=== PATIENT | female | born 1970 | race Caucasian/White ===

== ENCOUNTER → 2016-06-26 | Outpatient (CLI) | payer OTHER ==
[~2016-06-26] MED LIST: MULT-706 PO; OXYC-302 PO; QUET400T4 PO; SUMA50TA3 PO; TRAM-28 PO
== END | disposition home or self-care (01) ==
LOC: PETCFH 09:08
PROVIDERS: ATTEND Internal Medicine Gastroenterology
DX: K30 Functional dyspepsia (principal); K58.9 Irritable bowel syndrome, unspecified; K64.9 Unspecified hemorrhoids; K59.00 Constipation, unspecified; F31.9 Bipolar disorder, unspecified; G43.109 Migraine with aura, not intractable, without status migrainosus; F34.1 Dysthymic disorder; E89.41 Symptomatic postprocedural ovarian failure; Z68.25 Body mass index [BMI] 25.0-25.9, adult
CPT/HCPCS: 78264; A9541

== ENCOUNTER 2016-07-11 11:40 | Day surgery (SDC) | payer OTHER ==
[~2016-07-11] VITALS: Ht 162.6 cm; Wt 64.0 kg
[2016-07-11] MEDS: FENTANYL PF 100 MCG/2ML IV PRN ×4 (09:55→10:15)
[2016-07-11] MEDS: HYDROmorphone 1 MG/ML, 1ML IV PRN ×3 (10:20→10:35)
[~2016-07-11 11:40] MED LIST changes: +ACETAMINOPHEN 650 MG/20.3 ML UDC ONE; +DEXAMETHASONE 4 MG/ML, 1ML ONE; +EPHEDRINE 50 MG/ML, 1ML ONE; +FENTANYL PF 100 MCG/2ML ONE; +FENTANYL PF 250 MCG/5ML ONE; +HYDROmorphone 1 MG/ML, 1ML ONE; +KETOROLAC 30 MG/1 ML ONE; +LIDOCAINE 0.5%-EPI 1:200K, 50ML ONE; +MIDAZOLAM 1 MG/ML, 2ML ONE; +ONDANSETRON 2MG/ML, 2ML ONE; +OXYcodone 5 MG/5 ML ORAL.SOL UDC ONE; +PROPOFOL 10 MG/ML, 20ML ONE; +ROCURONIUM 10 MG/ML ONE; +SILVER NITRATE STICK TP ONE; +TRAM50TA2 PO
[2016-07-11] MEDS ORDERED: OXYcodone 5 MG/5 ML ORAL.SOL UDC PO PRN (14:00)
[2016-07-11] MEDS ORDERED: ACETAMINOPHEN 325 MG TABLET PO PRN (14:00)
[2016-07-11] MEDS ORDERED: ONDANSETRON 2MG/ML, 2ML IVPush PRN (14:00)
[2016-07-11] MEDS ORDERED: hydrALAzine 20 MG/ML, 1ML IV PRN (14:00)
[2016-07-11] MEDS ORDERED: LABETALOL 5MG/ML, 20ML IV PRN (14:00)
[2016-07-11] MEDS ORDERED: PROMETHAZINE 25 MG/ML, 1ML IV PRN (14:00)
[2016-07-11] MEDS ORDERED: LACTATED RINGERS 1,000 ML IV SCH (15:00)
== END 2016-07-11 12:45 | disposition home or self-care (01) ==
LOC: OUT 11:40
PROVIDERS: ATTEND Obstetrics & Gynecology Gynecology
DX: N83.8 Other noninflammatory disorders of ovary, fallopian tube and broad ligament (principal); Z90.710 Acquired absence of both cervix and uterus; G43.909 Migraine, unspecified, not intractable, without status migrainosus; Z98.890 Other specified postprocedural states
CPT/HCPCS: 58661; 88302; J1100; J1170; J1885; J2250; J2405; J2704; J3010; J7120